=== PATIENT | male | born 1960 | race Caucasian/White ===

== ENCOUNTER 2025-04-04 14:25 | Emergency (ER) | payer SELFPAY ==
[~2025-04-04 14:25] MED LIST: Iopamidol-370 76% 500 ML MDV (1 ML CHARGE) ONE
[2025-04-04 16:25] LABS: #Basophils 0.03 10x3/uL (0.0-0.2); #Eosinophils 0.14 10x3/uL (0.0-0.7); #Monocytes 0.59 10x3/uL (0.11-0.59); #Neutrophils 4.65 10x3/uL (1.40-6.50); %Basophils 0.4 % (0.0-1.0); %Eosinophils 1.9 % (0.0-10.0); %Lymphocytes 24.6 % (21.0-51.0); %Monocytes 8.2 % (0.0-10.0); %Neutrophils 64.6 % (42.0-75.0); Hematocrit 37.6 % (42.0-52.0); Hemoglobin 13.4 g/dL (14.0-18.0); Mean Corpuscular Hemoglobin 29.7 pg (27.0-31.0); Mean Corpuscular Volume 83.4 fL (78.0-98.0); Platelet Count 325 10x3/uL (130-400); Red Blood Cell (RBC) Count 4.51 mill/uL (4.70-6.10); White Blood Cell (WBC) Count 7.20 10x3/uL (4.8-10.8)
[2025-04-04 16:38] LABS: ALT (SGPT) 11 U/L (Less than 45); AST (SGOT) 17 U/L (11-34); Albumin 3.5 g/dL (3.1-4.5); Alkaline Phosphatase 78 U/L (40-110); Anion Gap 13 mmol/L (10-20); BUN (Urea Nitrogen) 24 mg/dL (8.4-25.7); Bilirubin, Total 0.4 mg/dL (0.3-1.2); Calc. Creatinine Clearance 0 mL/min (70-130); Calcium 9.2 mg/dL (7.8-10.44); Carbon Dioxide 20 mmol/L (23-31); Chloride 104 mmol/L (98-107); Globulin 2.8 g/dL (2.4-3.5); Glucose 333 mg/dL (80-115); Lipase 44 U/L (8-78); Potassium 3.7 mmol/L (3.5-5.1); Sodium 133 mmol/L (136-145)
[2025-04-04 17:17] LABS: Bacteria/HPF None Seen HPF (None Seen); CAUTI Indications for Culture Pelvic or flank pain; Glucose, Urine (Dipstick) Greater than 1000 mg/dL (Negative); Leukocyte Negative Leu/uL (Negative); Protein, Urine (Dipstick) Negative (Neg-Trace); RBC/HPF None Seen HPF (0-3); Specific Gravity, Urine 1.039 (1.002-1.036); WBC/HPF None Seen HPF (0-3)
[2025-04-04 17:20] LABS: Urine Culture Reflex No No
[2025-04-04] MEDS ORDERED: Cefepime 2 GM VIAL ONE (18:55)
[2025-04-04] MEDS ORDERED: Vancomycin 1.5 GM / NS 500ML VIAL-2-BAG IVPB SCH (19:30)
[2025-04-05 05:03] LABS: #Basophils Less than 0.03 10x3/uL (0.0-0.2); #Eosinophils 0.10 10x3/uL (0.0-0.7); #Monocytes 0.57 10x3/uL (0.11-0.59); #Neutrophils 5.68 10x3/uL (1.40-6.50); %Basophils 0.3 % (0.0-1.0); %Eosinophils 1.4 % (0.0-10.0); %Lymphocytes 12.1 % (21.0-51.0); %Monocytes 7.8 % (0.0-10.0); %Neutrophils 78.0 % (42.0-75.0); Hematocrit 40.4 % (42.0-52.0); Hemoglobin 13.9 g/dL (14.0-18.0); Mean Corpuscular Hemoglobin 29.2 pg (27.0-31.0); Mean Corpuscular Volume 84.9 fL (78.0-98.0); Platelet Count 253 10x3/uL (130-400); Red Blood Cell (RBC) Count 4.76 mill/uL (4.70-6.10); White Blood Cell (WBC) Count 7.28 10x3/uL (4.8-10.8)
== END 2025-04-04 16:20 | disposition home or self-care (01) ==
LOC: ERS 14:25
DX: S91.201A Unspecified open wound of right great toe with damage to nail, initial encounter (principal); L03.031 Cellulitis of right toe; R33.9 Retention of urine, unspecified; E11.9 Type 2 diabetes mellitus without complications; X58.XXXA Exposure to other specified factors, initial encounter; Z86.73 Personal history of transient ischemic attack (TIA), and cerebral infarction without residual deficits
CPT/HCPCS: 36416; 51702; 51798; 74177; 80053; 81001; 82550; 83605; 83690; 85025; 86141; 96365; 96367; J0692; J7030; Q9967